=== PATIENT | male | born 1965 | race Caucasian/White ===

== ENCOUNTER 2019-07-14 14:06 | Emergency (ER) | payer BC ==
[~2019-07-14] VITALS: Ht 185.4 cm; Wt 97.5 kg
[2019-07-14 14:09] VITALS: BP 122/73
--- NOTE | 2019-07-14 14:25 | NUR ---
53 Y/O MALE PRESENTS WITH ACUTE ON CHRONIC SINUSITIS X7 DAYS. PAIN 6/10, PULSING PAIN LOCATED AT SINUS AREAS. PT ALSO C/O SORE THROAT FOR 7 DAYS + EPISTAXIS. PRODUCTIVE COUGH X7 DAYS EXPELLING OUT BRIGHT GREEN/YELLOW MUCUS. PT TOOK ONE DOSE OF CLARITIN TODAY. LUNG SOUNDS CLEAR IN BILAT LOBES. RESP EVEN AND UNLABORED. DENIES SOB/CP. HX: HIV NKA
--- NOTE | 2019-07-14 14:34 | NUR ---
X-RAY AT BEDSIDE
--- NOTE | 2019-07-14 14:35 | NUR ---
PT REFUSED CXR DID NOT GIVE REASON WHY---MD AWARE
--- NOTE | 2019-07-14 14:54 | NUR ---
Dr. Bateman is evaluating the patient at bedside.
[2019-07-14 15:09] VITALS: BP 122/73
--- NOTE | 2019-07-14 15:10 | NUR ---
Patient discharged with v/s stable. Written and verbal after care instructions given and explained. Patient alert, oriented and verbalized understanding of instructions. Ambulatory with to car. All questions addressed prior to discharge. ID band removed. Patient advised to follow up with PMD. Rx of AZITHROMYCIN, SUDAFED, PREDNISONE given. Patient educated on indication of medication including possible reaction and side effects. Opportunity to ask questions provided and answered.
== END 2019-07-14 15:10 | disposition home or self-care (01) ==
LOC: MED 14:06
DX: J32.0 Chronic maxillary sinusitis (principal); J32.1 Chronic frontal sinusitis; R05 Cough; Z98.890 Other specified postprocedural states
CPT/HCPCS: 99283